=== PATIENT | female | born 1970 | race Caucasian/White ===

== ENCOUNTER 2024-03-17 13:32 | Emergency (ER) | payer OTHER, SELFPAY ==
[2024-03-17 13:40] VITALS: BP 147/87
--- NOTE | 2024-03-17 13:40 | ED.GENMED ---
ED Provider Triage
-
Patient seen by provider in Triage?: Seen in Triage
Attestation: A medical screening examination has been initiated by a qualified medical provider. Based on the assessment performed at this time, it has been determined that an emergent medical condition may exist and the patient has been informed
that further medical evaluation and possible additional diagnostic testing may be needed.
HPI: Vomited 3 a.m., diarrhea 5 nights ago. Gets diarrhea any time she eats or drinks since, 2-3 times a day, non bloody. Called PCP at [facility] who prescribed Zofran yesterday.. Took it yesterday and today with some relief. But no with
headache general, now 12/12. Yesterday started with low back pain, aching in both legs. Dizzy, nauseous, last episode of diarrhea an hour ago. Large amount,no blood.
Denies significant abdominal pain. Denies UTI symptoms. Denies f/c.
Took Tylenol just CLAY STAIN MIXER which has helped the headache and leg pain 'a little'
GENERAL: Alert , in no apparent distress
EYE: No visual abnormalities.
ENT: No visible abnormalities.
LUNGS: No acute respiratory distress
NEUROLOGICAL: Alert and oriented
SKIN: Skin intact. No visible changes.
MUSCULOSKELETAL: Moving extremities normally
PSYCH: Normal and appropriate interaction.
This is a medical evaluation conducted in person to initiate diagnostic evaluation and provide initial therapeutics. Please see further documentation by the treating clinician.
History of Present Illness
General
Chief Complaint: Dehydration Symptoms
Source: patient
Exam Limitations: none
Time Seen by Provider: 03/17/24 13:40
Nursing documentation reviewed up to this point in time: agreed with
History of Present Illness
History of Present Illness:
HPI: Vomited 3 a.m., diarrhea 5 nights ago. Gets diarrhea any time she eats or drinks since, 2-3 times a day, non bloody. Called PCP at [facility] who prescribed Zofran yesterday.. Took it yesterday and today with some relief. But no with
headache general, now 12/12. Yesterday started with low back pain, aching in both legs. Dizzy, nauseous, last episode of diarrhea an hour ago. Large amount,no blood.
Denies significant abdominal pain. Denies UTI symptoms. Denies f/c.
Took Tylenol just CLAY STAIN MIXER which has helped the headache and leg pain 'a little'
Afebrile, tearful due to significant bilateral leg pains
Past History
Past History
ED Past Medical History: GERD and Psychiatric (depression)
ED Past Surgical History: Gynecological (breaast augmentation)
Review of Systems
Review of Systems
Allergies reviewed?: Yes
All Other Systems: ROS reviewed and negative except as documented in HPI and ROS
Constitutional: Denies fever or chills
Respiratory: Denies trouble breathing
Cardiac: Denies chest pain
ABD/GI: Denies abdominal pain, nausea, vomiting, diarrhea or constipated
: Reports incontinence; Denies dysuria, frequency, flank pain, difficulty voiding, urgency or bleeding
Musculoskeletal: Reports back pain and other (pain both legs radiating up to lower back)
Skin: Reports no symptoms
Neurological: Reports dizzy and headache; Denies weakness or numbness
Phy Exam
Physical Exam
Physical Exam:
GENERAL: No acute distress. A&Ox3.
CONSTITUTIONAL: Afebrile.
EYES: clear, conjunctivae normal
ENMT: moist mucus membranes, Pharynx nl
RESPIRATORY: Regular respirations, nonlabored, lungs clear.
CARDIOVASCULAR: Regular rate and rhythm, no murmurs, no rubs.
GI: Soft, nontender, normal BS
MUSCULOSKELETAL: Moves with ease. Well perfused.
SKIN: Warm, dry, pink
PSYCH: Tearful mood and affect. Well kept, interactive and appropriate
NEUROLOGIC: Awake, alert and oriented. No focal neurological deficits
Course
Orders/Labs/Results
Orders:
Orders
03/17/24 13:50
C-Reactive Protein Urgent
Comment: ADD ON
Complete Blood Count/With Diff Urgent
Comprehensive Metabolic Panel Urgent
Erythrocyte Sed Rate Urgent
Comment: ADD ON
03/17/24 14:41
Add On- LAB Urgent
Tests Added?: CRP, Sed rate
03/17/24 15:20
Urinalysis Reflex To Culture Urgent
Date Specimen was Collected: 03/17/24
Time Specimen was Collected: 15:17
03/17/24 16:04
Ondansetron Orally Disint [Zofran Odt (Orally Disintegrating)] 4 mg PO NOW STA
03/17/24 16:05
Ketorolac [Toradol] 30 mg IM NOW STA
Abnormal Lab Results
03/17/24
13:50
RBC 5.58 H 10^6/uL
(4.20-5.40)
MCV 80.1 L fL
(81.0-99.0)
MPV 10.5 H fL
(7.4-10.4)
Abs Immat Gran (auto) 0.1 H 10^3/uL
(0-0.05)
Absolute Neuts (auto) 7.0 H 10^3/uL
(1.4-6.5)
Immature Gran % 0.6 H %
(0-0.5)
Lymphocytes % 19.9 L %
(20.5-51.1)
Glucose 109 H mg/dl
(70-99)
Calcium 10.4 H mg/dl
(8.4-10.2)
ALT 37 H U/L
(0-35)
03/17/24 13:50
03/17/24 13:50
Vital Signs
Initial and Last Documented VS:
Initial Vital Signs
Temp Pulse Resp BP Pulse Ox
98.2 F 75 16 147/87 97
03/17/24 13:40 03/17/24 13:40 03/17/24 13:40 03/17/24 13:40 03/17/24 13:40
Last Documented Vital Signs
Temp Pulse Resp BP Pulse Ox
98.2 F 60 13 107/61 97
03/17/24 13:40 03/17/24 16:15 03/17/24 16:15 03/17/24 16:01 03/17/24 16:15
MDM/Problems Addressed
Differential Diagnosis Includes:
Gastroenteritis, viral syndrome
MDM/Problems Addressed:
HPI: Vomited 3 a.m., diarrhea 5 nights ago. Gets diarrhea any time she eats or drinks since, 2-3 times a day, non bloody. Called PCP at [facility] who prescribed Zofran yesterday.. Took it yesterday and today with some relief. But no with
headache general, now 12/12. Yesterday started with low back pain, aching in both legs. Dizzy, nauseous, last episode of diarrhea an hour ago. Large amount,no blood.
Denies significant abdominal pain. Denies UTI symptoms. Denies f/c.
Took Tylenol just CLAY STAIN MIXER which has helped the headache and leg pain 'a little'
Afebrile, tearful due to significant bilateral leg pains
3:45 p.m.
CBC unremarkable.
CMP normal
ESR normal
In to re evaluate pt
States H/A 12/12, nausea 10/12, leg and back pain are gone.
Will give IM Toradol for headache and Zofran for nausea and pt comfortable going home to rest
Has Zofran at home if needed.
Pt ambulated out with normal gait
*Critical Care Note
Total Time (30-74mins, 75-104mins- exclusive of procedures): Not Applicable
ED Attending Note
-
Portions of this chart may have been created with voice recognition software.� Occasional wrong word or��sound alike� substitutions may have occurred due to the inherent limitations of voice recognition software.
Discharge Plan
Departure
Patient Disposition: Home (Routine Discharge)
Date of Disposition: 03/17/24
Time of Disposition: 16:19
Patient with high blood pressure during this ER visit?: No
Condition: Good
Discharge Problem:
Gastroenteritis
Instructions: Viral gastroenteritis in adults, Nausea and Vomiting, Adult (DC), Diarrhea, Adult ED
Referrals:
Rishi Galloway [Other] - As needed
Stand Alone Forms: Return to Work
Activity Restrictions/Additional Instructions:
As we discussed, nothing worrisome in your workup here today.
See your doctor in 5-7 days for recheck if you are not better by then.
Ibuprofen 600 mg (with food) every 6 hours as needed for pain in legs/back/headache.
Continue Zofran if needed for nausea.
Interventions
Interventions:
*Risk Screen - Suicide Last Done: 03/17/24 13:40
*General Assessment Last Done: 03/17/24 13:40
*Neglect/Abuse Screening Last Done: 03/17/24 13:40
ED- Fall Risk Assessment Last Done: 03/17/24 16:24
*ED COVID-19 Vaccine History Last Done: 03/17/24 15:13
*Nursing Disposition Last Done: 03/17/24 16:24
ED- Cardiac Assessment Last Done: 03/17/24 15:14
ED- Neurological Assessment Last Done: 03/17/24 15:14
ED- Pulmonary Assessment Last Done: 03/17/24 15:14
Discharge Date and Time
Discharge Date/Time: 03/17/24 16:48
Print Language: ARMENIAN
[2024-03-17 13:59] LABS: % Basophils 0.4 % (0-2); % Eosinophils 1.3 % (0-6); % Immature Granulocytes 0.6 % (0-0.5); % Lymphocytes 19.9 % (20.5-51.1); % Monocytes 6.1 % (1.7-9.3); % Neutrophils 71.7 % (42.2-75.2); Absolute Eosinophils 0.1 10^3/uL (0-0.7); Absolute Immature Granulocytes 0.1 10^3/uL (0-0.05); Absolute Monocytes 0.6 10^3/uL (0.1-0.6); Hematocrit 44.7 % (37.0-47.0); Hemoglobin 15.7 g/dL (12.0-16.0); Mean Corp Hgb Conc. 35.1 g/dL (33.0-37.0); Mean Corpuscular Hgb 28.1 pg (27.0-31.0); Mean Corpuscular Volume 80.1 fL (81.0-99.0); Mean Platelet Volume 10.5 fL (7.4-10.4); Nucleated Red Blood Cells % 0 %; Platelet Count 288 10^3/uL (130-400); Red Blood Cell Count 5.58 10^6/uL (4.20-5.40); Red Cell Dist. Width 12.4 % (11.5-14.5); White Blood Cell Count 9.8 10^3/uL (4.8-10.8)
[2024-03-17 14:27] LABS: ALT (SGPT) 37 U/L (0-35); AST (SGOT) 32 U/L (14-36); Albumin 4.5 g/dl (3.5-5.0); Alkaline Phosphatase 68 U/L (38-126); Blood Urea Nitrogen 14 mg/dl (7-17); Calcium 10.4 mg/dl (8.4-10.2); Carbon Dioxide 25 mmol/L (22-30); Chloride 106 mmol/L (98-107); Glucose 109 mg/dl (70-99); Potassium 4.1 mmol/L (3.5-5.1); Sodium 144 mmol/L (135-145); Total Bilirubin 0.6 mg/dl (0.2-1.3); Total Protein 7.2 g/dl (6.3-8.2); eGFR > 60.00
[2024-03-17 15:13] VITALS: BMI 26.6
[2024-03-17 15:17] LABS: Erythrocyte Sed Rate 15 mm/hour (0-20)
[2024-03-17 15:19] VITALS: BP 128/69
[2024-03-17 15:35] LABS: Urine Albumin Negative (Neg - Trace); Urine Bilirubin Negative (Negative); Urine Character Clear (Clear); Urine Color Yellow; Urine Glucose Negative (Negative); Urine Ketone Negative (Negative); Urine Leukocyte Negative (Negative); Urine Nitrite Negative (Negative); Urine Occult Blood Negative (Negative); Urine Urobilinogen Negative (Neg - 1+); Urine pH 6.5 (5.0-9.0)
[2024-03-17 16:01] VITALS: BP 107/61
[2024-03-17] MEDS: TORADOL 30 MG IM (16:15)
[2024-03-17] MEDS: ZOFRAN ODT (ORALLY DISINTEGRATING) 4 MG PO (16:15)
== END 2024-03-17 16:48 | disposition home or self-care (01) ==
LOC: EMR 13:32
PROVIDERS: Registered Nurse; EMERGENCY PHYSICIAN Emergency Medicine; FAMILY PHYSICIAN Internal Medicine
DX: K52.9 Noninfective gastroenteritis and colitis, unspecified (principal)
CPT/HCPCS: 99284; 96372; 80053; 81003; 85025; 85652; 86140

== ENCOUNTER 2025-01-14 16:22 | Inpatient (IN) | payer OTHER, SELFPAY ==
[2025-01-14 11:09] VITALS: BP 127/71
--- NOTE | 2025-01-14 11:28 | ED.GENMED ---
History of Present Illness
<Arlene Momin PA-C - Last Filed: 01/14/25 16:40>
General
Chief Complaint: Abdominal Pain
Source: patient
Exam Limitations: none
Time Seen by Provider: 01/14/25 11:14
History of Present Illness
History of Present Illness:
54yoF with a history of GERD and anxiety presenting for evaluation of abdominal pain. Symptoms began 2 days ago. She reports pain throughout her lower abdomen with bloating. She is also experiencing nausea, vomiting, and diarrhea. She has been
unable to tolerate p.o. intake since her symptoms began. Patient noticed bright red blood in the toilet bowl this morning. Her son is a nurse who advised her to go to the ED for evaluation. She ate [employer] the night before her symptoms began
which were homemade. She denies any sick contacts or recent antibiotic use. She traveled to [place] in November but otherwise denies travel. No previous abdominal surgeries. She does not take any blood thinners.
Past History
<Arlene Momin PA-C - Last Filed: 01/14/25 16:40>
Past History
ED Past Medical History: GERD and Psychiatric (depression)
ED Past Surgical History: Gynecological (breaast augmentation)
Phy Exam
<Arlene Momin PA-C - Last Filed: 01/14/25 16:40>
General Physical Exam
General Presentation: well appearing and no apparent distress
General Skin: warm and dry
General Habitus: normal
General Mental: alert
ENT Exam
ENT Exam: normocephalic
Gastrointestinal Exam
Gastrointestinal Exam: soft, non distended and other (+Tenderness in LLQ. Abdomen soft, non-distended. No rebound or guarding.)
Stool: other (No thrombosed external hemorrhoids. Patient provided stool sample which is mostly mucous with maroon blood mixed in.)
Neurological Exam
Neurological Exam: alert
Esha Coma Scale
Eye Opening: Spontaneous
Verbal Response: Oriented
Motor Response: Obeys Commands
GCS Total Score: 15
Skin Exam
Skin Exam: normal color and warm/dry
Psychiatric Exam
Psychiatric Exam: normal mood/affect
Course
fina;Arlene Momin PA-C - Last Filed: 01/14/25 16:40>
Orders/Labs/Results
Orders:
Orders
01/14/25 11:26
CT Abd/pel W Iv And Oral Contr Urgent
Comment:
Reason For Exam: LLQ pain, blood in stool
0.9% Sodium Chloride 1000 ml [Nss] 1,000 ml IV BOLUS
Iohexol [Omnipaque] See Protocol PO NOW STA
Ondansetron Injectable [Zofran] 4 mg IV NOW STA
01/14/25 11:36
Lactate Level [Lactic Acid] Urgent
01/14/25 11:37
Complete Blood Count/With Diff Urgent
Comprehensive Metabolic Panel Urgent
Lipase Urgent
PTT Urgent
Prothrombin Time Urgent
01/14/25 12:01
Stool Culture Urgent
JEREMY Source: Feces/Stool
Specimen Description:
Date Specimen was Collected: 01/14/25
Time Specimen was Collected: 12:00
01/14/25 15:18
Piperacillin/Tazo 4.5 Gram [Zosyn] 4.5 gram in 100 ml IV NOW
01/14/25 15:38
Admit/Transfer Patient As Directed
Co-Sign Provider:
Level of Care: Inpatient admission
Assign to:: Medical/Surgical
Physician / Group: Hali
Diagnosis: Colitis
Reason for Hospitalization: IVFs, IV abx
Expected length of stay greater than two midnights?: Yes
ELOS- Estimated Length of Stay in days: 3
I certify the patient meets the requirements for IP care: Yes
PRN Pain Medication Management As Directed
May give lesser potent ordered pain med per pt: Yes
preference::
Protocol:: Medication orders for pain may be administered in a
manner that supports deferring to patient preference
when the pt is:
- Requesting an ordered lesser potent pain medication.
Least to most potent pain medications are defined
as: acetaminophen < NSAID < tramadol < opioids
(morphine, oxycodone, hydromorphone).
- Requesting a lesser dose of the same medication IF
ORDERED.
- Requesting a less intrusive route of administration
if both routes are prescribed by the provider (PO <
IV).
01/14/25 15:39
Code Status As Directed
Resuscitation Status: Full Code
01/14/25 15:43
ECG [Electrocardiogram (*1)] Urgent
Reason for Study: QTc Monitoring
01/14/25 15:59
Add On - Microbiology Urgent
Tests Added?: stool for C Diff and Norovirus
01/14/25 16:03
GASTROINTESTINAL CONSULT Routine
Consulting Provider: Alondra Rosario
Was physician already notified: Yes
01/14/25 20:00
H&H Routine
Abnormal Lab Results
01/14/25
11:37
WBC 13.4 H 10^3/uL
(4.8-10.8)
RBC 5.57 H 10^6/uL
(4.20-5.40)
Hgb 16.1 H g/dL
(12.0-16.0)
MPV 11.1 H fL
(7.4-10.4)
Abs Immat Gran (auto) 0.1 H 10^3/uL
(0-0.05)
Absolute Neuts (auto) 11.5 H 10^3/uL
(1.4-6.5)
Absolute Lymphs (auto) 1.1 L 10^3/uL
(1.2-3.4)
Absolute Monos (auto) 0.7 H 10^3/uL
(0.1-0.6)
Neutrophils % 85.9 H %
(42.2-75.2)
Lymphocytes % 8.1 L %
(20.5-51.1)
BUN 18 H mg/dl
(7-17)
Glucose 103 H mg/dl
(70-99)
01/14/25 11:37
01/14/25 11:37
Vital Signs
Initial and Last Documented VS:
Initial Vital Signs
Temp Pulse Resp BP Pulse Ox
97.7 F 79 20 127/71 96
01/14/25 11:09 01/14/25 11:09 01/14/25 11:09 01/14/25 11:09 01/14/25 11:09
Last Documented Vital Signs
Temp Pulse Resp BP Pulse Ox
97.7 F 64 13 117/59 96
01/14/25 11:09 01/14/25 12:37 01/14/25 12:37 01/14/25 12:00 01/14/25 12:37
<Hi Scott, DO - Last Filed: 01/14/25 15:37>
Orders/Labs/Results
Orders:
Orders
01/14/25 11:26
CT Abd/pel W Iv And Oral Contr Urgent
Comment:
Reason For Exam: LLQ pain, blood in stool
0.9% Sodium Chloride 1000 ml [Nss] 1,000 ml IV BOLUS
Iohexol [Omnipaque] See Protocol PO NOW STA
Ondansetron Injectable [Zofran] 4 mg IV NOW STA
01/14/25 11:36
Lactate Level [Lactic Acid] Urgent
01/14/25 11:37
Complete Blood Count/With Diff Urgent
Comprehensive Metabolic Panel Urgent
Lipase Urgent
PTT Urgent
Prothrombin Time Urgent
01/14/25 12:01
Stool Culture Urgent
JEREMY Source: Feces/Stool
Specimen Description:
Date Specimen was Collected: 01/14/25
Time Specimen was Collected: 12:00
01/14/25 15:18
Piperacillin/Tazo 4.5 Gram [Zosyn] 4.5 gram in 100 ml IV NOW
01/14/25 15:38
Admit/Transfer Patient As Directed
Co-Sign Provider:
Level of Care: Inpatient admission
Assign to:: Medical/Surgical
Physician / Group: Hali
Diagnosis: Colitis
Reason for Hospitalization: IVFs, IV abx
Expected length of stay greater than two midnights?: Yes
ELOS- Estimated Length of Stay in days: 3
I certify the patient meets the requirements for IP care: Yes
PRN Pain Medication Management As Directed
May give lesser potent ordered pain med per pt: Yes
preference::
Protocol:: Medication orders for pain may be administered in a
manner that supports deferring to patient preference
when the pt is:
- Requesting an ordered lesser potent pain medication.
Least to most potent pain medications are defined
as: acetaminophen < NSAID < tramadol < opioids
(morphine, oxycodone, hydromorphone).
- Requesting a lesser dose of the same medication IF
ORDERED.
- Requesting a less intrusive route of administration
if both routes are prescribed by the provider (PO <
IV).
01/14/25 15:39
Code Status As Directed
Resuscitation Status: Full Code
01/14/25 15:43
ECG [Electrocardiogram (*1)] Urgent
Reason for Study: QTc Monitoring
01/14/25 15:59
Add On - Microbiology Urgent
Tests Added?: stool for C Diff and Norovirus
01/14/25 16:03
GASTROINTESTINAL CONSULT Routine
Consulting Provider: Alondra Rosario
Was physician already notified: Yes
01/14/25 20:00
H&H Routine
Abnormal Lab Results
01/14/25
11:37
WBC 13.4 H 10^3/uL
(4.8-10.8)
RBC 5.57 H 10^6/uL
(4.20-5.40)
Hgb 16.1 H g/dL
(12.0-16.0)
MPV 11.1 H fL
(7.4-10.4)
Abs Immat Gran (auto) 0.1 H 10^3/uL
(0-0.05)
Absolute Neuts (auto) 11.5 H 10^3/uL
(1.4-6.5)
Absolute Lymphs (auto) 1.1 L 10^3/uL
(1.2-3.4)
Absolute Monos (auto) 0.7 H 10^3/uL
(0.1-0.6)
Neutrophils % 85.9 H %
(42.2-75.2)
Lymphocytes % 8.1 L %
(20.5-51.1)
BUN 18 H mg/dl
(7-17)
Glucose 103 H mg/dl
(70-99)
01/14/25 11:37
01/14/25 11:37
Vital Signs
Initial and Last Documented VS:
Initial Vital Signs
Temp Pulse Resp BP Pulse Ox
97.7 F 79 20 127/71 96
01/14/25 11:09 01/14/25 11:09 01/14/25 11:09 01/14/25 11:09 01/14/25 11:09
Last Documented Vital Signs
Temp Pulse Resp BP Pulse Ox
97.7 F 64 13 117/59 96
01/14/25 11:09 01/14/25 12:37 01/14/25 12:37 01/14/25 12:00 01/14/25 12:37
<Arlene Momin PA-C - Last Filed: 01/14/25 16:40>
MDM/Problems Addressed
Differential Diagnosis Includes:
54yoF here with n/v/d and lower abd pain x 2 days. Bowel movements became bloody today. VSS and she is afebrile. She is non-toxic appearing. No signs of peritonitis on abdominal exam. Stool sample provided by patient which is mostly mucous with dark
red blood mixed in. Differential diagnosis includes but is not limited to: colitis, diverticular bleeding, hemorrhoidal bleeding, AVM
Initial ED plan: Check abdominal labs, lactate, coags, stool culture, and CT abdomen. IV fluid bolus.
<Arlene Momin PA-C - Last Filed: 01/14/25 16:40>
*Pulse Oximetry
SaO2: 96
Oxygen Mode of Delivery: Room air
Patient hypoxic: no (96%)
*Critical Care Note
Total Time (30-74mins, 75-104mins- exclusive of procedures): Not Applicable
<Arlene Momin PA-C - Last Filed: 01/14/25 16:40>
Update Note
Update Note:
CT shows moderate to severe acute colitis in the descending and sigmoid colon. Leukocytosis present with a white count of 13.4. Hemoglobin and lactate normal. Patient has had multiple bloody bowel movements during ED stay. IV Zosyn ordered and
patient admitted for further management.
ED Attending Note
<Arlene Momin PA-C - Last Filed: 01/14/25 16:40>
-
Portions of this chart may have been created with voice recognition software.� Occasional wrong word or��sound alike� substitutions may have occurred due to the inherent limitations of voice recognition software.
<Hi Scott, DO - Last Filed: 01/14/25 15:37>
ED Attending Note
Patient seen and examined by attending physician: Yes
I performed a history and physical exam of patient and discussed management with resident, I reviewed resident's note and agree with documented findings and plan of care.: Yes
ED Attending Note:
I performed brief evaluation. Leukocytosis noted. CT imaging reviewed. Patient will be admitted for IV antibiotics.
Discharge Plan
Departure
Patient Disposition: Admit
Date of Disposition: 01/14/25
Time of Disposition: 15:24
Presentation/result/management discussed w/ accepting MD/DO: Hospitalist
Discharge Problem:
Colitis
Interventions
Interventions:
*Risk Screen - Suicide Last Done: 01/14/25 11:09
*General Assessment Last Done: 01/14/25 11:09
*Neglect/Abuse Screening Last Done: 01/14/25 11:09
*ED- Fall Risk Assessment Last Done: 01/14/25 11:33
*ED COVID-19 Vaccine History Last Done: 01/14/25 11:34
[facility] Assessment Last Done: 01/14/25 11:34
[2025-01-14 11:32] VITALS: BMI 25.2
[2025-01-14] MEDS: NSS 1000 IV ×2 (11:49→18:28)
[2025-01-14] MEDS: ZOFRAN 4 MG IV (11:50)
[2025-01-14] MEDS: OMNIPAQUE 50 ML PO (11:51)
[2025-01-14 11:56] VITALS: BP 112/81
[2025-01-14 12:00] VITALS: BP 117/59
[2025-01-14 12:11] LABS: Hematocrit 46.9 % (37.0-47.0); Hemoglobin 16.1 g/dL (12.0-16.0); Mean Corp Hgb Conc. 34.3 g/dL (33.0-37.0); Mean Corpuscular Volume 84.2 fL (81.0-99.0); Nucleated Red Blood Cells % 0 %; Platelet Count 244 10^3/uL (130-400); Red Cell Dist. Width 12.9 % (11.5-14.5)
[2025-01-14 12:19] LABS: INR 1.01; PT 13.6 Sec (11.4-14.6)
[2025-01-14 12:20] LABS: APTT 23.7 Sec (23.4-35.0)
[2025-01-14 12:23] LABS: ALT (SGPT) 26 U/L (0-35); AST (SGOT) 24 U/L (14-36); Albumin 4.6 g/dl (3.5-5.0); Alkaline Phosphatase 84 U/L (38-126); Blood Urea Nitrogen 18 mg/dl (7-17); Calcium 10.1 mg/dl (8.4-10.2); Carbon Dioxide 25 mmol/L (22-30); Chloride 104 mmol/L (98-107); Estimated Creatinine Clearance 66 ml/min; Glucose 103 mg/dl (70-99); Lipase 64 U/L (23-300); Potassium 4.6 mmol/L (3.5-5.1); Sodium 137 mmol/L (135-145); Total Protein 7.5 g/dl (6.3-8.2); eGFR > 60.00
--- NOTE | 2025-01-14 16:01 | HPS.HSE ---
Family Physician
-
Family Physician: Isabela Blackwell DO
Chief Complaint
-
Bloody Diarrhea
History of Present Illness
Patient is a 54 y/o female past medical history of hypothyroidism and anxiety / depression who presents with bloody diarrhea. Patient reports she had [employer] for dinner a few nights ago. The morning after, two days ago, she developed nausea,
vomiting and diarrhea. This morning she passed bright red blood and she presented to the emergency department for evaluation. She reports two episodes of bloody diarrhea prior to arrival and four episodes while in the emergency department. She
reports left lower quadrant abdominal pain. She denies any fevers.
Medical History
Past Medical History
Past Medical History: Reports Other
Additional Past Medical History:
Hypothyroidism
Anxiety / Depression
GERD
Acne
Past Surgical History: Reports Other
Additional Past Surgical History:
Breast Augmentation
Social History
Tobacco: Non-smoker
Alcohol: Occasional
Drug: None
Family History
Family History: Not pertinent
Allergies / Home Medications
Allergies reflects when Allergies were last updated in [facility].
Home Medications with original date entered in [facility]
Allergy/Medication List:
Allergies
Allergy/AdvReac Type Severity Reaction Status Date / Time
No Known Allergies Allergy Verified 01/14/25 11:09
Home Medications
escitalopram oxalate 20 mg tablet (Lexapro) 20 mg PO DAILY 01/14/25
esomeprazole magnesium 20 mg capsule,delayed release (Nexium) 20 mg PO DAILY 01/14/25
levothyroxine 50 mcg tablet (Synthroid) 50 mcg PO DAILY 01/14/25
spironolactone 50 mg tablet 50 mg PO BID 01/14/25
Review of Systems
-
A 12 point ROS was completed and negative except as noted: Yes
Constitutional: Denies Fever
Respiratory: Denies Cough or Trouble Breathing
Cardiac: Denies Chest Pain or Palpitations
Abdomen/GI: Reports See HPI
Physical Exam
Vital Signs
Vital Signs
Temp Pulse Resp BP Pulse Ox
97.7 F 64 13 117/59 96
01/14/25 11:09 01/14/25 12:37 01/14/25 12:37 01/14/25 12:00 01/14/25 12:37
Physical Exam
General: Comfortable and Conversant
HEENT: Anicteric and Moist mucous membranes
Respiratory: Clear and Non Labored Respirations
Cardiac: S1/S2 and Regular Rhythm
GI: Soft and Tender (Mild left lower quadrant)
Rectal: Deferred by Provider
Musculoskeletal: No Clubbing and No Cyanosis
Skin: Warm and Dry
Neuro: Awake, Alert, Oriented and Nonfocal/grossly intact
Psych: Calm
Laboratory Results
-
01/14/25 11:37
01/14/25 11:37
Laboratory Results
PT 13.6 Sec (11.4-14.6) 01/14/25 11:37
INR 1.01 01/14/25 11:37
APTT 23.7 Sec (23.4-35.0) 01/14/25 11:37
Lactic Acid 1.5 mmol/L (0.7-2.0) 01/14/25 11:36
Total Bilirubin 1.3 mg/dl (0.2-1.3) 01/14/25 11:37
AST 24 U/L (14-36) 01/14/25 11:37
ALT 26 U/L (0-35) 01/14/25 11:37
Alkaline Phosphatase 84 U/L (38-126) 01/14/25 11:37
Lipase 64 U/L (23-300) 01/14/25 11:37
Abd/Pelvis CT:
1. Findings compatible with acute colitis involving the descending and sigmoid colon. Moderate to severe in degree. No pelvic free fluid.
Data Reviewed
-
CT Scan: Report Reviewed by me
Lab Data: Labs Reviewed by me
Impression/Plan
-
Bloody Diarrhea due to Acute Colitis of Descending and Sigmoid Colon
-Consult GI
-Allow clear liquids
-Continue IVFs
-Continue Zosyn
-Await stool cultures
Hypothyroidism
-Continue levothyroxine
Anxiety / Depression
-continue Lexapro
GERD
-Continue Protonix
Acne
-Hold spironolactone
DVT proph: SCDs
Code Status: Full Code
[2025-01-14] MEDS: ZOSYN 100 IV (16:38)
--- NOTE | 2025-01-14 16:39 | W.PN.UPDATE ---
Update Note
Progress Note Update
I saw and examined the patient.
Kendal Yeager is the physicians' administrative office assistant caring for this patient. Her note was reviewed and the care plan was discussed. I agree with the note with the following comments.
General: No Apparent Distress, Comfortable and Conversant
HEENT: NormoCephalic, Moist mucous membranes, Atraumatic
Respiratory: Clear and Non Labored Respirations
Cardiac: S1/S2 and Regular Rhythm; No Rub or Gallop
GI: Soft, mild left sided TTP, Non Distended and Normal Bowel Sounds
Musculoskeletal: No Edema, no deformity
Skin: Warm and dry
: NO Flores
Neuro: Awake, Alert, Nonfocal/grossly intact
Psych: Calm and Intact Judgment/Insight
Ms. Rust is a 54-year-old female with a medical history of hypothyroidism and anxiety who presented with abdominal pain and bloody diarrhea. Her symptoms began on Friday night (2 days prior to arrival) and were associated with nausea and
vomiting. In the ED she was afebrile and normotensive. Her labs were significant for a leukocytosis of 13,000. CT imaging of her abdomen and pelvis showed moderate to severe acute colitis involving the descending and sigmoid colon. She was
started on IV fluids and antibiotics with Zosyn. She has been admitted for further evaluation and management.
Acute colitis:
- CT imaging shows moderate to severe colitis involving the descending and sigmoid colon
- Continue IV fluids and antibiotics with Zosyn
- Check stool studies including C. difficile
- Monitor hemoglobin levels considering blood mixed with stool
- Consult to GI
DVT prophylaxis: SCDs
CODE STATUS: Full code
Total time spent on today's encounter was 58 minutes.
[2025-01-14 16:41] VITALS: BP 103/57
--- NOTE | 2025-01-14 17:18 | EDRN ---
Orders placed by Dr Rosario for stool for cdiff and wbc. This RN cancelled those orders and put them in as a micro add on since stool is in the lab. Noted add on order cancelled in [facility]. Called micro and informed they just received the add on
order for cdiff/wbc and will run as long as the stool is not formed.
--- NOTE | 2025-01-14 17:32 | CON.GI ---
Addendum entered and electronically signed by Alondra Rosario MD 01/14/25 20:54:
I saw and examined the patient.
The ENVIRONMENTAL DEPARTMENT MANAGER or PA's note was reviewed and I agree with the note.
Comment: 54-year-old female with history of GERD, hypothyroidism presenting with complaints of nausea, vomiting and nonbloody diarrhea starting Friday morning after eating sloppy Tony's Friday, she has had multiple episodes of diarrhea, up
to 6 times including nocturnal episodes and today started noticing bloody bowel movements and discomfort in the left lower quadrant and came to the emergency room. No previous similar episodes. In the ER, mild leukocytosis noted, normal LFTs, CT
scan of the abdomen pelvis showing acute colitis of the descending and sigmoid colon.
No sick contacts, no other travel travel except to [place] in November 2024, nobody else ate the same food as her, did not eat raw poultry or fish and did not eat out
Colonoscopy in 2018 at [facility] unremarkable as per patient and had upper endoscopy at some point as well for reflux symptoms
- Acute onset nausea, vomiting, diarrhea followed by bloody diarrhea and abdominal discomfort, rule out infectious versus ischemic colitis
Continue IV hydration
Await stool for culture, C. difficile, WBC, Cryptosporidium and Giardia
Monitor H&H and transfuse if needed
Okay for clear liquid diet, advance as tolerated
Monitor electrolytes and replete
Currently on broad-spectrum antibiotics
Can follow-up with outpatient GI for colonoscopy in 8 weeks
Continue PPI for history of reflux
Original Note:
Consultation
-
Date/Time Consultation Requested: 01/14/25 1600
Date/Time Consultation Performed: 01/14/25 1615
Requesting Provider: BRITTNEE Amin
Performing Provider: Dr. Rosario/GABI Becerril
Reason for Consultation: colitis
Medical History
Chief Complaint / HPI
Chief Complaint: N/V/D, bloody stool
History of Present Illness:
54-year-old female with past medical history of hypothyroidism, anxiety, depression, GERD, and acne presents to the emergency room with acute onset of nausea, vomiting, diarrhea that progressed to bloody diarrhea that started on Friday at 3 AM.
Came into the ER because of the progression to bloody stools. Asked to evaluate for colitis. The patient states that on Friday evening she made 'sloppy Tony's'. That only she herself ate. She went to bed but awoke at approximately 3 AM Friday
morning with acute onset of nausea, vomiting and diarrhea. She states it was 'coming out both ends'. This was at first brown diarrhea. She states that she was having multiple episodes every hour. She could not hold anything down. She states
that any food she will put in her mouth she would probably vomit. She would have abdominal discomfort more in the epigastric area. This continued on. Approximately 5 AM this morning this progressed to bloody diarrhea. At that point she proceeded
to come to the emergency room for further evaluation. She has had at least 6 episodes of bloody diarrhea since arrival. She is able to tolerate some sips of fluid and a couple crackers. She did have left-sided abdominal tenderness which has
changed locations that is more of a crampy and soreness. She denies any fevers, chills, melena, dysphagia or dyne aphasia. No early satiety or unintentional weight loss. She does have a history of chronic GERD, she is on omeprazole for this. She
had no recent travel, no antibiotics, no sick contacts. She did travel to [place] in November. She does not recall eating any spoiled or raw meats, shellfish. She did have feelings of lightheadedness without any true syncope. She denies any chest
pain or shortness of breath. She is afebrile 98.4 degrees, blood pressure 103/57, heart rate 69. WBC 13.4, hemoglobin 16.1, hematocrit 46.9, platelets 244, PT 13.6, INR 1.01, sodium 137, potassium 4.6, BUN 18, creatinine 0.8, glucose 103, total
bilirubin 1.3, AST 24, ALT 26, alk phos 84, lipase 64. CT of the abdomen and pelvis with IV and oral contrast showed findings compatible with acute colitis involving the descending and sigmoid colon. Moderate to severe in degree. No pelvic free
fluid. Stool culture, stool leukocytes, and stool for C. difficile all pending.
Past Medical History
Past Medical History: Other (Hypothyroidism, anxiety/depression, GERD, acne)
Past Surgical History: Other (Breast augmentation)
Social History
Tobacco: Non-Smoker
Alcohol: Occasional
Drug: None
Personal:
Living: With Family
Family History
Family History: Other (No family history of gastrointestinal malignancy or IBD)
Allergies / Home Medications
Allergy/AdvReac Type Severity Reaction Status Date / Time
No Known Allergies Allergy Verified 01/14/25 11:09
�Medication �Instructions �Recorded
escitalopram oxalate 20 mg tablet 20 mg PO DAILY 01/14/25
(Lexapro)
esomeprazole magnesium 20 mg 20 mg PO DAILY 01/14/25
capsule,delayed release (Nexium)
levothyroxine 50 mcg tablet 50 mcg PO DAILY 01/14/25
(Synthroid)
spironolactone 50 mg tablet 50 mg PO BID 01/14/25
Review of Systems
-
All other systems: A 12 pt ROS was Negative except as stated above in HPI
Vital Signs
Temp Pulse Resp BP Pulse Ox
98.4 F 69 16 103/57 96
01/14/25 16:45 01/14/25 16:41 01/14/25 16:41 01/14/25 16:41 01/14/25 12:37
Physical Exam
Exam
General: No Apparent Distress
HEENT: Normocephalic
Respiratory: Clear (Anterior)
Cardiac: Regular Rhythm
GI: Soft, Non Distended, Normal Bowel Sounds (Normal to hyperactive bowel sounds) and Tender (Left-sided abdominal tenderness)
Musculoskeletal: No Edema
Skin: Warm and Dry
Neuro: AO x 3
Psych: Calm
Results
WBC 13.4 10^3/uL (4.8-10.8) H 01/14/25 11:37
Hgb 16.1 g/dL (12.0-16.0) H 01/14/25 11:37
Hct 46.9 % (37.0-47.0) 01/14/25 11:37
MCV 84.2 fL (81.0-99.0) 01/14/25 11:37
Plt Count 244 10^3/uL (130-400) 01/14/25 11:37
Absolute Neuts (auto) 11.5 10^3/uL (1.4-6.5) H 01/14/25 11:37
PT 13.6 Sec (11.4-14.6) 01/14/25 11:37
INR 1.01 01/14/25 11:37
APTT 23.7 Sec (23.4-35.0) 01/14/25 11:37
Sodium 137 mmol/L (135-145) 01/14/25 11:37
Potassium 4.6 mmol/L (3.5-5.1) 01/14/25 11:37
Chloride 104 mmol/L (98-107) 01/14/25 11:37
Carbon Dioxide 25 mmol/L (22-30) 01/14/25 11:37
BUN 18 mg/dl (7-17) H 01/14/25 11:37
Creatinine 0.8 mg/dL (0.6-1.0) 01/14/25 11:37
Calcium 10.1 mg/dl (8.4-10.2) 01/14/25 11:37
Total Bilirubin 1.3 mg/dl (0.2-1.3) 01/14/25 11:37
AST 24 U/L (14-36) 01/14/25 11:37
ALT 26 U/L (0-35) 01/14/25 11:37
Alkaline Phosphatase 84 U/L (38-126) 01/14/25 11:37
Lipase 64 U/L (23-300) 01/14/25 11:37
Diagnostic Image Results:
CT abdomen and pelvis with oral and IV contrast:
IMPRESSION:
1. Findings compatible with acute colitis involving the descending and sigmoid colon. Moderate to severe in degree. No pelvic free fluid.
2. Additional findings above.
Prior GI Procedures:
EGD: Per patient was done in the past. Does not recall year. Per patient okay.
Colonoscopy: Per patient '2018 performed by GI specialist near [facility]' states 'okay'
Assessment / Plan
-
54-year-old female with past medical history of hypothyroidism, anxiety, depression, GERD, and acne presents to the emergency room with acute onset of nausea, vomiting, diarrhea that progressed to bloody diarrhea that started on Friday at 3 AM.
Came into the ER because of the progression to bloody stools. Asked to evaluate for colitis. Patient with acute onset of nausea, vomiting and diarrhea that progressed to bloody diarrhea initiating on Friday a.m. CT of the abdomen and pelvis
with oral and IV contrast showing acute colitis involving the descending and sigmoid colon moderate to severe. Patient has had 6 episodes of bloody diarrhea since arrival in the emergency department. Now able to tolerate some oral liquids by
mouth.WBC 13.4, hemoglobin 16.1, hematocrit 46.9, platelets 244, PT 13.6, INR 1.01, sodium 137, potassium 4.6, BUN 18, creatinine 0.8, glucose 103, total bilirubin 1.3, AST 24, ALT 26, alk phos 84, lipase 64. Stool culture, stool leukocytes, and
stool for C. difficile all pending.
Impression:
N/V/D
Colitis
-Infectious vs degree of iscehmia based on colon distribution
Plan:
-IVF
-Await stool studies pending
-Continue Zosyn already initiated.
-Trend CBC, BMP
-Ok for clear liquids, no red
-Add Pantoprazole 40 mg daily
-Recommend Colonoscopy in 8 weeks with patient primary GI. Discussed with patient.
-
-
Thank you for consultation and allowing me to participate in the patient's care. Please call the deep well contractor GI physician during the after hours with any questions or concerns.
[2025-01-14 17:54] VITALS: BP 111/66; BMI 24.5
[2025-01-14 20:23] LABS: Hematocrit 42.1 % (37.0-47.0); Hemoglobin 14.2 g/dL (12.0-16.0)
[2025-01-14] MEDS: ZOSYN 50 IV (22:16)
[2025-01-15] MEDS: NSS 1000 IV ×2 (03:58→15:29)
[2025-01-15] MEDS: ZOSYN 50 IV ×4 (03:59→21:52)
[2025-01-15 05:03] VITALS: BP 108/61
[2025-01-15] MEDS: SYNTHROID 50 MCG PO (05:50)
[2025-01-15 06:00] VITALS: BMI 24.6
[2025-01-15 06:40] VITALS: BMI 24.6
[2025-01-15 07:25] VITALS: BP 95/59
[2025-01-15] MEDS: PROTONIX 40 MG PO (08:30)
[2025-01-15] MEDS: LEXAPRO 20 MG PO (08:30)
[2025-01-15] MEDS: TYLENOL 650 MG PO ×3 (08:36→21:54)
[2025-01-15 09:02] LABS: Hematocrit 39.9 % (37.0-47.0); Hemoglobin 13.7 g/dL (12.0-16.0); Mean Corp Hgb Conc. 34.3 g/dL (33.0-37.0); Mean Corpuscular Volume 85.4 fL (81.0-99.0); Red Cell Dist. Width 13.2 % (11.5-14.5)
[2025-01-15 09:07] LABS: Blood Urea Nitrogen 12 mg/dl (7-17); Calcium 8.5 mg/dl (8.4-10.2); Carbon Dioxide 26 mmol/L (22-30); Chloride 108 mmol/L (98-107); Estimated Creatinine Clearance 58 ml/min; Glucose 86 mg/dl (70-99); Potassium 4.0 mmol/L (3.5-5.1); Sodium 138 mmol/L (135-145); eGFR > 60.00
--- NOTE | 2025-01-15 09:34 | CM ---
Patient seen bedside, initial assessment completed. Patient is a 54 y/o female past medical history of hypothyroidism and anxiety / depression who presents with bloody diarrhea.
Patient resides w/ spouse in a [facility], 2 steps to enter from the outside. Patient is independent in all areas, no medical equipment reported. No therapy hx reported.
Address, point of contact and insurance verified
PCP: Isabela Blackwell
Pharmacy: [facility]
Plan: Home, no needs anticipated
--- NOTE | 2025-01-15 13:14 | W.PN.HOSP.TC ---
Today's Communication/Plan
-
Assessment / Plan
Assessment / Plan
General: No Apparent Distress, Comfortable and Conversant
HEENT: NormoCephalic, Moist mucous membranes, Atraumatic
Respiratory: Clear and Non Labored Respirations
Cardiac: S1/S2 and Regular Rhythm; No Rub or Gallop
GI: Soft, minimal left upper and lower quadrant TTP, Non Distended and Normal Bowel Sounds
Musculoskeletal: No Edema, no deformity
Skin: Warm and dry
: NO Flores
Neuro: Awake, Alert, Nonfocal/grossly intact
Psych: Calm and Intact Judgment/Insight
Ms. Rust is a 54-year-old female with a medical history of hypothyroidism and anxiety who presented with abdominal pain and bloody diarrhea. Her symptoms began on Friday night (2 days prior to arrival) and were associated with nausea and
vomiting. In the ED she was afebrile and normotensive. Her labs were significant for a leukocytosis of 13,000. CT imaging of her abdomen and pelvis showed moderate to severe acute colitis involving the descending and sigmoid colon. She was
started on IV fluids and antibiotics with Zosyn. She has been admitted for further evaluation and management.
Acute colitis:
- CT imaging shows moderate to severe colitis involving the descending and sigmoid colon
- Continue IV fluids and antibiotics with Zosyn
- Stool studies negative for C. difficile and norovirus, Salmonella/Shigella/Campylobacter pending
- Abdominal symptoms improved today, diet advanced from clears to regular however she experienced some increased pain and diarrhea after eating, continue diet as tolerated
- Continue IV fluids for now but reduced rate to 80 cc/h
- Still having bloody bowel movements, hemoglobin stable
- Appreciate GI guidance
- Patient will need eventual outpatient colonoscopy in 8 weeks
DVT prophylaxis: SCDs
CODE STATUS: Full code
Total time spent on today's encounter was 54 minutes.
Anticipated Discharge: 24 - 48 hours
Subjective/Interval History
-
Date of Service: January 15, 2025
Patient was seen and examined at bedside this morning. She is tolerating a liquid diet with improved pain this morning. Still having bloody bowel movements.
Objective Data
-
Labs:
Laboratory Results
01/15/25
07:23
WBC 11.5 H
Hgb 13.7
Hct 39.9
Plt Count
Sodium 138
Potassium 4.0
Chloride 108 H
Carbon Dioxide 26
BUN 12
Creatinine 0.9
Glucose 86
Calcium 8.5 D
Vital Signs:
Vital Signs
Temp Pulse Resp BP Pulse Ox
98.2 F 70 16 95/59 95
01/15/25 07:25 01/15/25 07:25 01/15/25 07:25 01/15/25 07:25 01/15/25 07:25
I&O
01/14/25 01/15/25 01/16/25
06:59 06:59 06:59
Intake Total 1580 / 1580
Balance 1580 / 1580
Review of Systems
-
History Source: Patient
All other systems: Reviewed and negative
Abdomen/GI: Reports Bloody Stools
Physical Exam
-
General: No Apparent Distress
--- NOTE | 2025-01-15 15:13 | W.PN.GI.CBS2 ---
Today's Communication / Plan
-
Plan:
Stool for C. difficile, norovirus negative, cultures pending but moderate white cells noted suggesting infectious/ischemic colitis
-Continue Zosyn
-Trend CBC, BMP
-Ok for low residue diet as tolerated. If symptoms continue to improve, okay to discharge home.
Avoid NSAIDs
-Recommend Colonoscopy in 8 weeks with patient primary GI. Discussed with patient.
Assessment / Plan
-
54-year-old female with past medical history of hypothyroidism, anxiety, depression, GERD, and acne presents to the emergency room with acute onset of nausea, vomiting, diarrhea that progressed to bloody diarrhea that started on Friday at 3 AM.
Came into the ER because of the progression to bloody stools. Asked to evaluate for colitis. Patient with acute onset of nausea, vomiting and diarrhea that progressed to bloody diarrhea initiating on Friday a.m. CT of the abdomen and pelvis
with oral and IV contrast showing acute colitis involving the descending and sigmoid colon moderate to severe. Patient has had 6 episodes of bloody diarrhea since arrival in the emergency department. Now able to tolerate some oral liquids by
mouth.WBC 13.4, hemoglobin 16.1, hematocrit 46.9, platelets 244, PT 13.6, INR 1.01, sodium 137, potassium 4.6, BUN 18, creatinine 0.8, glucose 103, total bilirubin 1.3, AST 24, ALT 26, alk phos 84, lipase 64. Stool culture, stool leukocytes, and
stool for C. difficile all pending.
Impression:
N/V/D
Colitis
-Infectious vs degree of iscehmia based on colon distribution
Plan:
Stool for C. difficile, norovirus negative, cultures pending but moderate white cells noted suggesting infectious/ischemic colitis
-Continue Zosyn
-Trend CBC, BMP
-Ok for low residue diet as tolerated. If symptoms continue to improve, okay to discharge home.
Avoid NSAIDs
-Recommend Colonoscopy in 8 weeks with patient primary GI. Discussed with patient.
Subjective
Subjective
Date of Service: January 15, 2025
Patient had about 3 bowel movements last night and 3 bowel movements this morning but blood seems to be getting more scant, no fevers or chills, still some discomfort in the abdomen
Objective
Data Reviewed
Laboratory Data:
Laboratory Results
01/15/25 07:23
01/15/25 07:23
Laboratory Results
PT 13.6 Sec (11.4-14.6) 01/14/25 11:37
INR 1.01 01/14/25 11:37
APTT 23.7 Sec (23.4-35.0) 01/14/25 11:37
Total Bilirubin 1.3 mg/dl (0.2-1.3) 01/14/25 11:37
AST 24 U/L (14-36) 01/14/25 11:37
ALT 26 U/L (0-35) 01/14/25 11:37
Alkaline Phosphatase 84 U/L (38-126) 01/14/25 11:37
Lipase 64 U/L (23-300) 01/14/25 11:37
Vital Signs and I&O:
Vital Signs
Temp Pulse Resp BP Pulse Ox
98.2 F 70 16 95/59 95
01/15/25 07:25 01/15/25 07:25 01/15/25 07:25 01/15/25 07:25 01/15/25 07:25
I&O
01/14/25 01/15/25 01/16/25
06:59 06:59 06:59
Intake Total 1580 / 1580
Balance 1580 / 1580
Physical Exam
Physical Exam
GI: Soft, Non Distended and Non Tender
[2025-01-15 15:25] VITALS: BP 97/64
[2025-01-15 19:46] VITALS: BP 93/52
[2025-01-15 23:40] VITALS: BP 64/40
[2025-01-15 23:41] VITALS: BP 75/50
--- NOTE | 2025-01-15 23:50 | PTCARENOTE ---
Pt. had manual blood pressure 64/40, pt. felt a little dizzy when sitting up, notified GABI Osei, ordered NSS 1000 bolus, will continue to monitory.
[2025-01-15] MEDS: NSS 500 IV (23:57)
[2025-01-16 03:21] VITALS: BP 84/57
[2025-01-16] MEDS: ZOSYN 50 IV ×4 (04:22→21:43)
[2025-01-16] MEDS: SYNTHROID 50 MCG PO (05:26)
[2025-01-16 05:38] VITALS: BP 98/63
[2025-01-16] MEDS: NSS 1000 IV ×2 (05:58→23:15)
[2025-01-16 08:00] VITALS: BP 105/51
[2025-01-16] MEDS: LEXAPRO 20 MG PO (08:14)
[2025-01-16] MEDS: PROTONIX 40 MG PO (08:14)
[2025-01-16 09:09] LABS: Hematocrit 36.9 % (37.0-47.0); Hemoglobin 12.6 g/dL (12.0-16.0); Mean Corp Hgb Conc. 34.1 g/dL (33.0-37.0); Mean Corpuscular Volume 84.1 fL (81.0-99.0); Red Cell Dist. Width 13.1 % (11.5-14.5)
[2025-01-16] MEDS: NSS IV (10:27)
--- NOTE | 2025-01-16 13:45 | W.PN.HOSP.TC ---
Today's Communication/Plan
-
Assessment / Plan
Assessment / Plan
General: No Apparent Distress, Comfortable and Conversant
HEENT: NormoCephalic, Moist mucous membranes, Atraumatic
Respiratory: Clear and Non Labored Respirations
Cardiac: S1/S2 and Regular Rhythm; No Rub or Gallop
GI: Soft, minimal left-sided abdominal TTP, Non Distended and active bowel Sounds
Musculoskeletal: No Edema, no deformity
Skin: Warm and dry
: NO Flores
Neuro: Awake, Alert, Nonfocal/grossly intact
Psych: Calm and Intact Judgment/Insight
Ms. Rust is a 54-year-old female with a medical history of hypothyroidism and anxiety who presented with abdominal pain and bloody diarrhea. Her symptoms began on Friday night (2 days prior to arrival) and were associated with nausea and
vomiting. In the ED she was afebrile and normotensive. Her labs were significant for a leukocytosis of 13,000. CT imaging of her abdomen and pelvis showed moderate to severe acute colitis involving the descending and sigmoid colon. She was
started on IV fluids and antibiotics with Zosyn. She has been admitted for further evaluation and management.
Acute colitis:
- CT imaging shows moderate to severe colitis involving the descending and sigmoid colon
- Was hypotensive overnight and given 500 cc bolus of normal saline
- Feeling generally better than when she was first admitted although has very little appetite, p.o. intake stimulates more diarrhea
- Continuing IV fluids and antibiotics with Zosyn
- Stool studies negative for C. difficile and norovirus, Salmonella/Shigella/Campylobacter negative
- Continue diet as tolerated
- Still having bloody bowel movements, hemoglobin drifting downward slowly but still well above transfusion threshold at 12.6 today
- Appreciate GI guidance
- Patient will need outpatient colonoscopy in 8 weeks
DVT prophylaxis: SCDs
CODE STATUS: Full code
Total time spent on today's encounter was 52 minutes.
Anticipated Discharge: 24 - 48 hours
Subjective/Interval History
-
Date of Service: January 16, 2025
Patient was seen and examined at bedside this morning. She was hypotensive overnight and received a 500 cc bolus of normal saline. Remains comfortable however still having bloody bowel movements.
Objective Data
-
Labs:
Laboratory Results
01/16/25
07:53
WBC 9.8
Hgb 12.6
Hct 36.9 L
Plt Count
Vital Signs:
Vital Signs
Temp Pulse Resp BP Pulse Ox
98.2 F 61 16 105/51 97
01/16/25 08:00 01/16/25 08:00 01/16/25 08:00 01/16/25 08:00 01/16/25 08:00
I&O
01/15/25 01/16/25 01/17/25
06:59 06:59 06:59
Intake Total 1580 / 1580 1740 / 1740
Balance 1580 / 1580 1740 / 1740
Review of Systems
-
History Source: Patient
All other systems: Reviewed and negative
Abdomen/GI: Reports Bloody Stools
Neuro: Reports Headache
Physical Exam
-
General: No Apparent Distress
--- NOTE | 2025-01-16 15:10 | W.PN.GI.CBS2 ---
Today's Communication / Plan
-
Plan:
Stool for C. difficile, norovirus negative, cultures neg but moderate white cells noted suggesting infectious/ischemic colitis
-Continue Zosyn
-Trend CBC, BMP
-low residue diet as tolerated.
Currently getting IV fluids for hypotension
Avoid NSAIDs
-Recommend Colonoscopy in 8 weeks with patient primary GI. Discussed with patient.
Assessment / Plan
-
54-year-old female with past medical history of hypothyroidism, anxiety, depression, GERD, and acne presents to the emergency room with acute onset of nausea, vomiting, diarrhea that progressed to bloody diarrhea that started on Friday at 3 AM.
Came into the ER because of the progression to bloody stools. Asked to evaluate for colitis. Patient with acute onset of nausea, vomiting and diarrhea that progressed to bloody diarrhea initiating on Friday a.m. CT of the abdomen and pelvis
with oral and IV contrast showing acute colitis involving the descending and sigmoid colon moderate to severe. Patient has had 6 episodes of bloody diarrhea since arrival in the emergency department. Now able to tolerate some oral liquids by
mouth.WBC 13.4, hemoglobin 16.1, hematocrit 46.9, platelets 244, PT 13.6, INR 1.01, sodium 137, potassium 4.6, BUN 18, creatinine 0.8, glucose 103, total bilirubin 1.3, AST 24, ALT 26, alk phos 84, lipase 64. Stool culture, stool leukocytes, and
stool for C. difficile all pending.
Impression:
N/V/D
Colitis
-Infectious vs degree of iscehmia based on colon distribution
Plan:
Stool for C. difficile, norovirus negative, cultures neg but moderate white cells noted suggesting infectious/ischemic colitis
-Continue Zosyn
-Trend CBC, BMP
-low residue diet as tolerated.
Currently getting IV fluids for hypotension
Avoid NSAIDs
-Recommend Colonoscopy in 8 weeks with patient primary GI. Discussed with patient.
Subjective
Subjective
Date of Service: January 16, 2025
No sig abdominal pain but mutiple non bloody BM still
Objective
Data Reviewed
Laboratory Data:
Laboratory Results
01/16/25 07:53
01/15/25 07:23
Laboratory Results
PT 13.6 Sec (11.4-14.6) 01/14/25 11:37
INR 1.01 01/14/25 11:37
APTT 23.7 Sec (23.4-35.0) 01/14/25 11:37
Total Bilirubin 1.3 mg/dl (0.2-1.3) 01/14/25 11:37
AST 24 U/L (14-36) 01/14/25 11:37
ALT 26 U/L (0-35) 01/14/25 11:37
Alkaline Phosphatase 84 U/L (38-126) 01/14/25 11:37
Lipase 64 U/L (23-300) 01/14/25 11:37
Vital Signs and I&O:
Vital Signs
Temp Pulse Resp BP Pulse Ox
98.2 F 61 16 105/51 97
01/16/25 08:00 01/16/25 08:00 01/16/25 08:00 01/16/25 08:00 01/16/25 08:00
I&O
01/15/25 01/16/25 01/17/25
06:59 06:59 06:59
Intake Total 1580 / 1580 1740 / 1740
Balance 1580 / 1580 1740 / 1740
Physical Exam
Physical Exam
GI: Soft, Non Distended and Non Tender
[2025-01-16 16:00] VITALS: BP 110/57
[2025-01-16] MEDS: TYLENOL 650 MG PO (20:07)
[2025-01-16 23:14] VITALS: BP 98/50
[2025-01-17] MEDS: ZOSYN 50 IV ×2 (04:55→09:29)
[2025-01-17] MEDS: SYNTHROID 50 MCG PO (04:58)
[2025-01-17] MEDS: LEXAPRO 20 MG PO (07:39)
[2025-01-17] MEDS: PROTONIX 40 MG PO (07:39)
[2025-01-17 07:49] VITALS: BP 109/60
[2025-01-17 08:55] LABS: Hematocrit 39.1 % (37.0-47.0); Hemoglobin 13.5 g/dL (12.0-16.0); Mean Corp Hgb Conc. 34.5 g/dL (33.0-37.0); Mean Corpuscular Volume 85.2 fL (81.0-99.0); Nucleated Red Blood Cells % 0 %; Red Cell Dist. Width 13.2 % (11.5-14.5)
[2025-01-17 09:00] LABS: Blood Urea Nitrogen 6 mg/dl (7-17); Calcium 9.0 mg/dl (8.4-10.2); Carbon Dioxide 29 mmol/L (22-30); Chloride 110 mmol/L (98-107); Estimated Creatinine Clearance 66 ml/min; Glucose 90 mg/dl (70-99); Magnesium 2.2 mg/dl (1.6-2.3); Potassium 4.1 mmol/L (3.5-5.1); Sodium 142 mmol/L (135-145); eGFR > 60.00
[2025-01-17] MEDS: NSS 1000 IV (09:29)
[2025-01-17 10:56] LABS: Platelet Count 187 10^3/uL (130-400)
--- NOTE | 2025-01-17 11:34 | W.DCSUMMARY ---
Discharge Summary
Discharge Data
Date of Admission: 01/14/25
Date of Discharge: 01/17/25
Total time spent discharging patient (in min): 31
-
Pending Results: No
Hospital Course
Attending physician on day of discharge:
Nisa Ariza MD
Admission/discharge diagnosis:
Acute colitis
Consultations:
GI Dr. Rosario
Procedures:
None
Hospital course:
54F with hypothyroidism, anxiety, depression, GERD P/W bloody diarrhea. CT showed moderate to severe acute colitis, unclear if infectious or ischemic. Stool studies were negative. She was empirically treated with IV Zosyn for 3 days. Patient
received IV fluid for hypotension, which improved. She was able to tolerate oral diet and her BMs were no longer bloody. She was seen by GI who recommended outpatient colonoscopy in 8 weeks.
Diagnostic findings:
CT A/P: 1. Findings compatible with acute colitis involving the descending and sigmoid colon. Moderate to severe in degree. No pelvic free fluid.
LIVER: Decreased attenuation compatible steatosis. Contains a couple of scattered hypodensities, which are too small to characterize. Patent portal vein.
Stool studies-
Negative for Norovirus GI and GII.
C. difficile GDH Antigen & Toxins - Final
Negative for toxigenic C.difficile
Salmonella/Shigella Culture - Final
No Salmonella, Shigella, Aeromonas or Plesiomonas species
isolated.
Campylobacter Culture - Final
No Campylobacter species isolated.
Shiga Toxin Test - Final
No E. coli Shiga Toxin 1 or 2 detected.
Stool Leukocytes - Final
Physical exam on discharge:
Gen: NAD
HEENT: PERRLA, EOMI, MMM, neck supple
Cards: RRR, no M/G/R
Resp: Lungs CTAB, no W/R/R
GI: soft, NT/ND/NABS
MSK: No edema
Skin: warm and dry, no rash, ulcer or lesions
Heme: No LAD
Psych: Calm
Neuro: AAOx3
Discharge disposition:
Home
Discharge Plan
-
Patient Disposition: Home (Routine Discharge)
Discharge Diagnosis/Procedures: Colitis
Diet: Regular
Activity: No restrictions
Driving Restrictions: As prior to admission
Activity Restrictions/Additional Instructions:
You were found to have colitis and you were treated as infectious colitis with IV antibiotics. You had stool testing which was not positive for any specific infectious organism. You were seen by the GI specialist and they recommend getting a
colonoscopy in 8 weeks.
Instructions: Colitis (DC)
Referrals:
Isabela Blackwell DO [Family Provider, Internal Medicine]
Alondra Rosario MD [Active, Gastroenterology]
Referral Note: Colonoscopy in 8 weeks for colitis w/u
Prescriptions:
Continued
levothyroxine [Synthroid] 50 mcg Tablet
50 mcg PO DAILY
spironolactone 50 mg Tablet
50 mg PO BID
esomeprazole magnesium [Nexium] 20 mg Capsule,Delayed Release(Dr/Ec)
20 mg PO DAILY
escitalopram oxalate [Lexapro] 20 mg Tablet
20 mg PO DAILY
Discharge Orders:
Discharge Patient (As Directed); Ordered 01/17/25
Ordered By: Nisa Ariza
Discharge Date and Time
Print Language: SOL[place] ISLAND[place]
--- NOTE | 2025-01-17 11:42 | CM ---
Chart reviewed. Patient will d/c home today
No CM needs at this time
Plan: Home, no needs
[2025-01-17] MEDS: TYLENOL 650 MG PO (11:50)
--- NOTE | 2025-01-17 12:07 | W.PN.GI.CBS2 ---
Today's Communication / Plan
-
As per plan
Assessment / Plan
-
54-year-old female with past medical history of hypothyroidism, anxiety, depression, GERD, and acne presents to the emergency room with acute onset of nausea, vomiting, diarrhea that progressed to bloody diarrhea that started on Friday at 3 AM.
Came into the ER because of the progression to bloody stools. Asked to evaluate for colitis. Patient with acute onset of nausea, vomiting and diarrhea that progressed to bloody diarrhea initiating on Friday a.m. CT of the abdomen and pelvis
with oral and IV contrast showing acute colitis involving the descending and sigmoid colon moderate to severe. Patient has had 6 episodes of bloody diarrhea since arrival in the emergency department. Now able to tolerate some oral liquids by
mouth.WBC 13.4, hemoglobin 16.1, hematocrit 46.9, platelets 244, PT 13.6, INR 1.01, sodium 137, potassium 4.6, BUN 18, creatinine 0.8, glucose 103, total bilirubin 1.3, AST 24, ALT 26, alk phos 84, lipase 64. Stool culture, stool leukocytes, and
stool for C. difficile all pending.
Impression:
N/V/D
Colitis
-Infectious vs degree of iscehmia based on colon distribution
Plan:
-Would recommend antibiotics to complete a 10-day course.
-low residue diet as tolerated.
-Avoid NSAIDs
-Recommend Colonoscopy in 8 weeks with patient primary GI. Discussed with patient.
-Okay per GI for discharge.
Subjective
Subjective
Date of Service: January 17, 2025
Patient doing well. Only mild left-sided abdominal tenderness. Tolerating low residue diet. Has had 2 loose brown bowel movements in the past 24 hours. No signs of bleeding. Afebrile, no leukocytosis. Stool cultures, stool C. difficile all
negative.
Objective
Data Reviewed
Laboratory Data:
Laboratory Results
01/17/25 08:05
01/17/25 08:05
Laboratory Results
PT 13.6 Sec (11.4-14.6) 01/14/25 11:37
INR 1.01 01/14/25 11:37
APTT 23.7 Sec (23.4-35.0) 01/14/25 11:37
Magnesium 2.2 mg/dl (1.6-2.3) 01/17/25 08:05
Total Bilirubin 1.3 mg/dl (0.2-1.3) 01/14/25 11:37
AST 24 U/L (14-36) 01/14/25 11:37
ALT 26 U/L (0-35) 01/14/25 11:37
Alkaline Phosphatase 84 U/L (38-126) 01/14/25 11:37
Lipase 64 U/L (23-300) 01/14/25 11:37
Vital Signs and I&O:
Vital Signs
Temp Pulse Resp BP Pulse Ox
97.8 F 62 16 109/60 99
01/17/25 07:49 01/17/25 07:49 01/17/25 07:49 01/17/25 07:49 01/17/25 08:00
I&O
01/16/25 01/17/25 01/18/25
06:59 06:59 06:59
Intake Total 1740 / 1740 3771 / 3771
Balance 1740 / 1740 3771 / 3771
Physical Exam
Physical Exam
HEENT: Anicteric
Cardiology: Normal Sinus Rhythm
Pulmonary: Clear (Anterior)
GI: Soft, Non Distended, Tender (Mild left-sided tenderness) and Normal Bowel Sounds
Extremities: No Edema
Neuro: Non Focal
[2025-01-17 15:26] VITALS: BP 112/59
== END 2025-01-17 15:53 | disposition home or self-care (01) | DRG 394 ==
LOC: 4 WEST ACU 16:22
PROVIDERS: Physician Assistant; Physician Assistant Medical; ADMITTING PHYSICIAN Internal Medicine; ATTENDING PHYSICIAN Internal Medicine; CONSULT PHYSICIAN Internal Medicine Gastroenterology; EMERGENCY PHYSICIAN Emergency Medicine; FAMILY PHYSICIAN Internal Medicine
DX: K55.9 Vascular disorder of intestine, unspecified (principal); A09 Infectious gastroenteritis and colitis, unspecified; K21.9 Gastro-esophageal reflux disease without esophagitis; F41.9 Anxiety disorder, unspecified; F32.A Depression, unspecified; E03.9 Hypothyroidism, unspecified; Z79.890 Hormone replacement therapy; Z79.899 Other long term (current) drug therapy
CPT/HCPCS: 74177; 80048; 80053; 83605; 83690; 83735; 85014; 85018; 85025; 85027; 85610; 85730; 87045; 87046; 87324; 87427; 87449; 87798; 89055; 93005; 96361; 96365; 96375; 99284; Q9967

== ENCOUNTER 2025-02-14 17:09 | Emergency (ER) | payer OTHER, SELFPAY ==
[2025-02-14 17:19] VITALS: BP 88/62
[2025-02-14 17:54] LABS: Urine Character Clear (Clear)
[2025-02-14 18:03] LABS: Urine Red Blood Cell 21-25 /HPF (0-2)
[2025-02-14 18:04] LABS: Urine White Cell 26-30 /HPF (0-5)
[2025-02-14 18:06] LABS: Urine Urothelial Cell 0-2 /LPF (FEW)
--- NOTE | 2025-02-14 19:17 | ED.GENMED ---
History of Present Illness
General
Chief Complaint: Urinary Symptoms
Source: patient
Exam Limitations: none
Time Seen by Provider: 02/14/25 19:09
History of Present Illness
History of Present Illness:
2 days of urinary tract symptoms including some burning and pelvic pain. Today developed left flank pain. No fever or chills. No nausea or vomiting. Recent episode of colitis however this feels different. Patient is postmenopausal.
Past History
Past History
ED Past Medical History: GERD and Psychiatric (depression)
ED Past Surgical History: Gynecological (breaast augmentation)
Review of Systems
Review of Systems
All Other Systems: Not applicable
Constitutional: Denies fever or chills
Phy Exam
Physical Exam
Physical Exam:
GENERAL: Alert and oriented in no apparent distress
EYE: Orbits normal.
CARDIAC: Regular rate and rhythm without any obvious murmurs.
LUNGS: Clear breath sounds,normal
ABDOMEN: Soft, without focal tenderness or distention. No CVA tenderness
NEUROLOGICAL: Alert and oriented , grossly non-focal
SKIN: Warm and dry
PSYCH: Normal and appropriate interaction.
Course
Orders/Labs/Results
Orders:
Orders
02/14/25 17:29
Urinalysis Reflex To Culture Urgent
Date Specimen was Collected: 02/14/25
Time Specimen was Collected: 17:23
Urine Microscopic Reflex Cult Urgent
Urine Culture Urgent
JEREMY Source: U
Specimen Description:
Date Specimen was Collected: 02/14/25
Time Specimen was Collected: 17:23
02/14/25 19:17
CT Abd/pel Without Iv Or Oral Urgent
Comment:
Reason For Exam: Left flank pain/UTI
02/14/25 20:53
Cefdinir [Omnicef] 300 mg PO NOW STA
Abnormal Lab Results
02/14/25
17:29
Ur Occult Blood Reflex 4+ A
(Negative)
Urine Nitrite (Reflex) Positive A
(Negative)
Urine Bilirubin 2+ A
(Negative)
Urine Urobilinogen 2+ A
(Neg - 1+)
Leukocyte Esterase Rfl 2+ A
(Negative)
Urine RBC 21-25 A /HPF
(0-2)
Urine WBC (Reflex) 26-30 A /HPF
(0-5)
Urine Bacteria (Reflex) Few A
(Negative)
Urine Albumin (Reflex) 2+ A
(Neg - Trace)
Vital Signs
Initial and Last Documented VS:
Initial Vital Signs
Temp Pulse Resp BP Pulse Ox
98.0 F 69 18 88/62 99
02/14/25 17:19 02/14/25 17:19 02/14/25 17:19 02/14/25 17:19 02/14/25 17:19
Last Documented Vital Signs
Temp Pulse Resp BP Pulse Ox
98.0 F 64 18 97/65 99
02/14/25 17:19 02/14/25 21:15 02/14/25 21:15 02/14/25 20:13 02/14/25 21:15
MDM/Problems Addressed
Differential Diagnosis Includes:
Patient clearly has UTI based on symptoms and urinalysis. With flank pain will need to evaluate for kidney stone. If there is no kidney stone and no obstruction very reasonable after outpatient antibiotic coverage. And no indication for labs.
However if there is a kidney stone or obstruction patient warrants inpatient and biotics and referral for urology.
*Radiology
Radiology exam reviewed: radiology read reviewed (No acute findings)
*Pulse Oximetry
SaO2: 99
Oxygen Mode of Delivery: Room air
Patient hypoxic: no
*Critical Care Note
Total Time (30-74mins, 75-104mins- exclusive of procedures): Not Applicable
Data Reviewed
Review of Other/Old Records Reveals: Labs and Testing
Update Note
Update Note:
Patient is remained medically stable and nontoxic. No obstructing kidney stone. UTI/possible mild pyelonephritis. Will cover with cephalosporin to follow-up
ED Attending Note
-
Portions of this chart may have been created with voice recognition software.� Occasional wrong word or��sound alike� substitutions may have occurred due to the inherent limitations of voice recognition software.
Discharge Plan
Departure
Patient Disposition: Home (Routine Discharge)
Date of Disposition: 02/14/25
Time of Disposition: 20:35
Patient with high blood pressure during this ER visit?: No
Discharge Problem:
uti , Possible early pyelonephritis/flank pain
Instructions: Urinary Tract Infection, Adult (DC), Flank pain - ED (DC)
Prescriptions:
New
cefdinir 300 mg capsule
300 mg PO BID 7 Days Qty: 14 0RF
No Action
levothyroxine [Synthroid] 50 mcg Tablet
50 mcg PO DAILY
spironolactone 50 mg Tablet
50 mg PO BID
esomeprazole magnesium [Nexium] 20 mg Capsule,Delayed Release(Dr/Ec)
20 mg PO DAILY
escitalopram oxalate [Lexapro] 20 mg Tablet
20 mg PO DAILY
phenazopyridine 99.5 mg Tablet
199 mg PO BIDPRN PRN (Reason: UTI PAIN)
Referrals:
Isabela Blackwell DO [Family Provider, Internal Medicine] - Follow up in 2-3 days
Activity Restrictions/Additional Instructions:
Your antibiotic prescription was sent to your pharmacy
Stay well-hydrated
Tylenol or Advil for pain
Recheck immediately with increasing pain high fever vomiting worsening flank pain or if symptoms have not significantly improved in 1 to 2 days
Interventions
Interventions:
*Risk Screen - Suicide Last Done: 02/14/25 20:11
*General Assessment Last Done: 02/14/25 20:11
*Neglect/Abuse Screening Last Done: 02/14/25 20:11
*ED- Fall Risk Assessment Last Done: 02/14/25 20:11
*ED COVID-19 Vaccine History Last Done: 02/14/25 20:11
*ED Influenza Vaccine History Last Done: 02/14/25 20:11
*Nursing Disposition Last Done: 02/14/25 21:12
ED-Female Genitourinary Assessment Last Done: 02/14/25 20:11
Discharge Date and Time
Discharge Date/Time: 02/14/25 21:17
Print Language: ALBAN[place]
[2025-02-14 20:11] VITALS: BMI 24.5
[2025-02-14 20:13] VITALS: BP 97/65
[2025-02-14] MEDS: OMNICEF 300 MG PO (21:13)
== END 2025-02-14 21:17 | disposition home or self-care (01) ==
LOC: EMR 17:09
PROVIDERS: EMERGENCY PHYSICIAN Emergency Medicine; FAMILY PHYSICIAN Internal Medicine
DX: N39.0 Urinary tract infection, site not specified (principal); F32.A Depression, unspecified; Z78.0 Asymptomatic menopausal state
CPT/HCPCS: 99284; 74176; 81003; 81015; 87086; 87088